=== PATIENT | female | born 1990 | race Caucasian/White ===

== ENCOUNTER 2019-11-10 12:09 | Inpatient (IN) | payer SELFPAY ==
[2019-11-10] VITALS (8 sets, daily range): BP systolic 91–113; BP diastolic 49–71; PULSE 85–128; TEMP 97.8–102.5
[~2019-11-10] VITALS: Ht 154.9 cm; Wt 67.8 kg
[2019-11-10 12:57] LABS: ALBUMIN 4.6 gm/dL (3.5-5.0); BILIRUBIN,TOTAL 1.3 mg/dL (0.0-1.0); C-REACTIVE PROTEIN 8.3 mg/dL (0.0-0.9); CALCIUM 9.2 mg/dL (8.4-10.2); CREATININE, serum 0.59 (0.52-1.25); HEMATOCRIT 38.8 % (37.0-47.0); HEMOGLOBIN 13.5 g/dl (12.5-16.0); MEAN CELL VOLUME 90 fl (80.0-100.0); MEAN CORPUSCULAR HEMOGLOBIN 31 pg (27.0-31.0); MEAN CORPUSCULAR HGB CONC 35 g/dl (33.0-37.0); MEAN PLATELET VOLUME 9.3 fl (7.4-10.4); PLATELET COUNT 210 K/mm3 (130-400); POTASSIUM 3.5 mmol/L (3.4-5.0); REDCELL DISTRIBUTION WIDTH-CV 11.9 % (11.5-14.5); TOTAL PROTEIN 8.3 gm/dL (6.4-8.2)
[2019-11-10 13:50] LABS: COLLECTION METHOD CLEAN CATCH
[2019-11-10 14:21] LABS: MUCOUS Present /lpf; PH 5 (5-8); URINE APPEARANCE Turbid; URINE BACTERIA None Seen /hpf; URINE BILIRUBIN Negative (NEGATIVE); URINE BLOOD 2+ (NEGATIVE); URINE COLOR Yellow; URINE GLUCOSE Negative (NEGATIVE); URINE KETONE Negative (NEGATIVE); URINE LEUKOCYTE ESTERASE 3+ (NEGATIVE); URINE NITRATE Negative (NEGATIVE); URINE PROTEIN(semi-quant) 2+ (NEGATIVE); URINE RBC >50 /hpf; URINE UROBILINOGEN Negative (NEGATIVE)
[2019-11-10 14:43] LABS: BAND 6 % (0-10); EOSINOPHIL 1 % (0-4); LYMPHOCYTE 13 % (20.0-51.0); NEUTROPHILS 77 % (42.0-75.2)
[2019-11-10 14:45] LABS: PLATELET ESTIMATE NORMAL (NORMAL)
[2019-11-10] MEDS ORDERED: DEPO-ESTRADIO5 MG/ML IM (18:05)
--- NOTE | 2019-11-10 18:06 | NUR ---
Pt arrived to floor, pain is 3/10 to RUQ that shoots to back and hips. Called Clement and orders received. Resting in bed, will give bedside shift report to nightshift nurse who will resume care.
--- NOTE | 2019-11-10 21:31 | NUR ---
Handover received from TAMY Bull. Pt seems uncomfortable, asking for pain meds, if possible. As per the nurse pain meds was provided within an hour, pt convinced to wait till next dose. Helped her to go to restroom and settled on bed. Surgery consent was taken and prepared to go down to OR. Handover given to ICU nurse. As per her last vital, pt is tachy and blood pressure in soft side.
--- NOTE | 2019-11-10 21:33 | NUR ---
Assessment complete; VS stable. Patient alert and oriented and in no distress upon arrival. Reports some "Sharp" throbbing pain around urethra. Adminstered PRN percocet. Spoke with Dr. Vaughan and recieved order for Levsin to help with bladder spasms.
--- NOTE | 2019-11-10 21:44 | NUR ---
Pt transfered to OR at 1949.
--- NOTE | 2019-11-10 22:21 | NUR ---
Hospitalist at bedside to see patient.
[2019-11-11] VITALS (18 sets, daily range): BP systolic 85–106; BP diastolic 47–76; PULSE 58–76; TEMP 97.6–98.3; O2SAT 98–100
[2019-11-11 06:02] LABS: MEAN CELL VOLUME 94 fl (80.0-100.0); MEAN CORPUSCULAR HGB CONC 34 g/dl (33.0-37.0); MEAN PLATELET VOLUME 9.5 fl (7.4-10.4); PLATELET COUNT 121 K/mm3 (130-400); RED BLOOD COUNT 3.45 M/mm3 (4.10-5.30); REDCELL DISTRIBUTION WIDTH-CV 12.1 % (11.5-14.5)
[2019-11-11 06:05] LABS: CALCIUM 7.9 mg/dL (8.4-10.2); CREATININE, serum 0.52 (0.52-1.25); POTASSIUM 4.1 mmol/L (3.4-5.0)
[2019-11-11 06:17] LABS: HEMATOCRIT 32.4 % (37.0-47.0); HEMOGLOBIN 11.1 g/dl (12.5-16.0); MEAN CORPUSCULAR HEMOGLOBIN 32 pg (27.0-31.0)
--- NOTE | 2019-11-11 15:25 | NUR ---
SW met with patient to complete intake. Patient provides that she lives in [place] with her Jack [phone] and children. Patient states that she does not utilize any DME and does not need any assistance with her ADL's. Patient states that she does not have a PCP and usually goes to the [facility] for her health care needs. Patient also provides that she typically does not need any other medications other than over the counter meds, which she is able to afford. Patient states that she does not have a DPOA-HC, but would like to appoint her Jack. Documentation reviewed with patient by SW, patient signed and ICU witnessed patient's signature. Original DPOA-HC documentation placed in chart, and copies made for patient. Patient stated that she was informed that she may go home tomorrow. Patient provided that she will not need any outside assistance upon discharge due to her niece coming into town today 11-11-2019 to assist after her discharge. SW will continue to follow.
--- NOTE | 2019-11-11 21:52 | NUR ---
Report called to TAMY Asencio on surgical floor. Patient will be taken up shortly.
--- NOTE | 2019-11-11 22:00 | NUR ---
Patient to surgical room 322 from ICU at this time. She ambulates steadily from wheelchair to bed and her pain is managed at this time. She is oriented to call light, tv and bathroom. No new concerns, will continue to monitor.
--- NOTE | 2019-11-11 22:03 | NUR ---
Patient leaves to surgical floor at this time. Patient leaves with all belongings via wheelchair. TAMY Asencio present to take over care.
[2019-11-12 04:00] VITALS: BP 104/54; PULSE 80; TEMP 98
[2019-11-12 07:22] VITALS: BP 104/67; PULSE 82; TEMP 98.9
--- NOTE | 2019-11-12 10:17 | NUR ---
Initial visit; Patient thanked [employer] Dispenser for stopping and wishing her well and God's blessings.
--- NOTE | 2019-11-12 11:58 | NUR ---
GAGAN attended clinical rounds. The patient is to discharge back home with her today, 11/11. GAGAN met with the patient and her to follow up about primary. The patient is self pay. The patient reports that she would be interested in getting set up with primary care at [facility] in [place]. GAGAN contacted and secured the patient an appointment at [facility] on 11/20 at 1500. GAGAN informed the director community center of appointment. GAGAN informed the patient and provided her with [facility]'s registration packet. GAGAN faxed the patient's records to [facility]. No additional needs at this time.
[2019-11-12 12:13] VITALS: BP 107/56; PULSE 58; TEMP 97.8
[2019-11-12 15:36] VITALS: BP 98/53; PULSE 68; TEMP 98.8
[2019-11-12] MEDS ORDERED: OMNICEF 300MG300 MG PO (16:13)
[2019-11-12] MEDS ORDERED: FLOMAX 0.40.4 MG/CAP PO (16:14)
[2019-11-12] MEDS ORDERED: LEVSIN0.125 M1 SL (16:25)
--- NOTE | 2019-11-12 17:00 | NUR ---
SEE PATIENT MORNING SHIFT ASSESSMENT. PATIENT PROVIDED WITH PRN PAIN AND BLADDER SPASM MEDICATIONS THROUGHOUT MY SHIFT. PATIENTS RIGHT AC INT DISCONTINUED PER PENDING DISCHARGE. TIP INTACT. PATIENT TOLERATED WELL. PATIENT DISCHARGE INSTRUCTIONS REVIEWED. QUESTIONS SOUGHT AND ANSWERED. PATIENT PERSONAL BELONGINGS GATHERED. PATIENT AMBULATED WITH SURGICAL STAFF TO PERSONAL VEHICLE. PATIENT DISCHARGED.
== END 2019-11-12 17:00 | disposition home or self-care (01) | DRG 854 ==
LOC: COL.ER 12:09 → SURG 15:58 → ICU 21:12 → SURG 11-11 22:03
PROVIDERS: Emergency Medicine; Physician Assistant; Urology
PROC: 0T768DZ Dilation of Right Ureter with Intraluminal Device, Via Natural or Artificial Opening Endoscopic (ICD-10-PCS; principal; 2019-11-10 20:00)
PROC: BT1D1ZZ Fluoroscopy of Right Kidney, Ureter and Bladder using Low Osmolar Contrast (ICD-10-PCS; 2019-11-10 20:00)
DX: A41.9 Sepsis, unspecified organism (principal); N20.1 Calculus of ureter; N12 Tubulo-interstitial nephritis, not specified as acute or chronic
CPT/HCPCS: 99222; A4314; A9284; C1769; C2617; C9113; J0696; J1100; J1170; J1885; J2270; J2405; J2543; J2704; J3010; J7030; Q9967

== ENCOUNTER 2019-11-30 05:37 | Day surgery (SDC) | payer SELFPAY ==
[~2019-11-30] VITALS: Ht 154.9 cm; Wt 61.8 kg
[2019-11-30] VITALS (9 sets, daily range): BP systolic 101–109; BP diastolic 48–66; PULSE 68–80; TEMP 97.9–99.1
[~2019-11-30 05:37] MED LIST: DEPO-ESTRADIO5 MG/ML IM; FLOMAX 0.40.4 MG/CAP PO; LEVSIN0.125 M1 SL; OMNICEF 300MG300 MG PO
[2019-11-30] MEDS ORDERED: FLOMAX 0.40.4 MG/CAP PO (06:02)
[2019-11-30] MEDS ORDERED: LEVSIN 0.10.125 MG/T PO (06:03)
[2019-11-30] MEDS ORDERED: NORCO 325 MG-51 TAB PO (06:16)
--- NOTE | 2019-11-30 08:40 | NUR ---
The patient arrived back to [facility] from the recovery room at this time. The patient appears drowsy but arouses easily to her name. The patient's post operative vital signs were started at this time. The patient denies wanting anything to eat or drink at this time. Call light is within reach. Will continue to monitor the patient.
--- NOTE | 2019-11-30 08:55 | NUR ---
The patient appears to be resting quietly on the cart with her eyes closed at this time. Respirations even and unlabored. Call light is within reach. Will continue to monitor the patient.
--- NOTE | 2019-11-30 09:10 | NUR ---
The patient ambulated to the bathroom with stand by assistane of one nurse and appeared to tolerate the activity well. The patient voided without difficulty. The patient asked the nurse what the strings that are taped to her leg are fore and the nurse educated the patient on the process for removing her ureteral sent at home. Will continue to monitor the patient.
--- NOTE | 2019-11-30 09:25 | NUR ---
The patient was given some water to try and appears to be tolerating it well. The patient denies wanting anything further to eat or drink at this time. Will continue to monitor the patient.
--- NOTE | 2019-11-30 09:55 | NUR ---
The patient appears to be resting comfortably on the cart. The patient denies wanting anything to eat at this time. She appears to be tolerating the water well. Will continue to monitor the patient.
--- NOTE | 2019-11-30 10:25 | NUR ---
The patient appears more alert and requests to try a muffin at this time. The patient's vital signs continue to appear stable. Call light is within reach.
--- NOTE | 2019-11-30 11:16 | NUR ---
The patient reports increased pain and was given a PRN dose of Percocet at this time. The patient has finished her muffin and appeared to tolerate it well. Will continue to monitor the patient.
--- NOTE | 2019-11-30 11:50 | NUR ---
Discharge instructions were reviewed with the patient at this time. She verbalized understanding and has no questions for the nurse at this time. The patient's IV to her left hand was removed and a pressure dressing was applied to the site. The nurse instructed the patient to get dressed and notify the staff when she is ready to be escorted out.
--- NOTE | 2019-11-30 12:00 | NUR ---
The patient was escorted out via wheelchair to an uber who will be driving her home. The patient's belongings and discharge paperwork were sent with her.
== END 2019-11-30 12:00 | disposition home or self-care (01) ==
LOC: SDCO 05:37
DX: N20.2 Calculus of kidney with calculus of ureter (principal); Z87.440 Personal history of urinary (tract) infections
CPT/HCPCS: C1769; C2617; J0690; J1100; J1200; J1885; J2405; J2704; J3010; J7120